=== PATIENT | female | born 1975 | race Caucasian/White ===

== ENCOUNTER 2017-08-16 10:46 | Inpatient (IN) | payer OTHER ==
[2017-08-16] MEDS ORDERED: CITRIC ACID/SODIUM CITRATE 30 ML UNIT-DOSE CUP PO ONE (11:28)
[2017-08-16] MEDS ORDERED: ELECTROLYTE-148 SOLN 1,000 ML IV SCH ×2 (11:30→13:54)
[2017-08-16] MEDS ORDERED: OXYTOCIN 20 UNITS in 0.9% NS 20 UNIT/1,000 ML INFUS.BAG IV ONE ×2 (11:32→14:34)
[2017-08-16] MEDS ORDERED: METOCLOPRAMIDE HCL INJECTION 10 MG/2 ML VIAL ONE (11:32)
[2017-08-16] MEDS ORDERED: ceFAZolin SODIUM 1 GM VIAL ONE (11:37)
[2017-08-16] MEDS ORDERED: morphine SULFATE/Preservative Free 0.5 MG/ML (1cc Syringe) ONE (11:37)
[2017-08-16] MEDS ORDERED: METOCLOPRAMIDE HCL INJECTION 10 MG/2 ML VIAL IVPUSH ONE (11:53)
[2017-08-16] MEDS ORDERED: PROPOFOL 20 ML ONE (11:55)
[2017-08-16 11:56] LABS: BASO % 0.5 % (0-2.0); EOS % 0.4 % (0-4.5); HEMATOCRIT 40.5 % (32.4-45.2); LYMPH % 15.3 % (8-40); MCH 33.8 pg (25.7-33.7); MCHC 34.6 g/dl (32.0-36.0); MEAN CELL VOLUME 97.6 fl (80-96); MONO % 7.5 % (3.8-10.2); NEUT % 76.3 % (42.8-82.8); PLATELET COUNT 221 K/MM3 (134-434); RBC 4.15 M/mm3 (3.60-5.2); RDW 13.9 % (11.6-15.6); WHITE BLOOD COUNT 7.2 K/mm3 (4.0-10.0)
[2017-08-16] MEDS ORDERED: SUCCINYLCHOLINE CHLORIDE 200 MG/10 ML VIAL ONE (11:56)
[2017-08-16 12:09] LABS: INR 0.96 (0.82-1.09); PROTHROMBIN TIME (PATIENT) 10.8 SEC (9.98-11.88)
[2017-08-16 12:12] LABS: ACTIVATED PTT 28.3 SECONDS (26.9-34.4)
[2017-08-16 12:20] LABS: ANION GAP 15 (8-16); BLOOD UREA NITROGEN 9 mg/dL (7-18); CALCIUM 9.1 mg/dL (8.5-10.1); CHLORIDE 106 mmol/L (98-107); CO2 19 mmol/L (21-32); CREATININE 0.6 mg/dL (0.55-1.02); GLUCOSE,RANDOM 112 mg/dL (74-106); POTASSIUM 4.2 mmol/L (3.5-5.1); SODIUM 140 mmol/L (136-145)
[2017-08-16] MEDS ORDERED: oxyCODONE HCL 5 MG TABLET PO PRN (12:51)
[2017-08-16] MEDS ORDERED: WITCH HAZEL 50% (TUCKS) 40 PAD/JAR PAD TP PRN (12:51)
[2017-08-16] MEDS ORDERED: diphenhydrAMINE HCL 25 MG CAPSULE (FP) PO PRN (12:51)
[2017-08-16] MEDS ORDERED: METHYLERGONOVINE MALEATE 0.2 MG/1 ML AMP IM PRN (12:51)
[2017-08-16] MEDS ORDERED: BENZOCAINE 20% 57 GM BOTTLE TP PRN (12:51)
[2017-08-16] MEDS ORDERED: BENZOCAINE 28 GM HEMORRHOIDAL OINTMENT PR PRN (12:51)
[2017-08-16] MEDS ORDERED: IBUPROFEN 800 MG/8 ML IJ IVPB PRN (12:51)
[2017-08-16] MEDS ORDERED: IBUPROFEN 600 MG TABLET (FP) PO PRN (12:58)
[2017-08-16] MEDS ORDERED: morphine SULFATE/Preservative Free 0.5 MG/ML (1cc Syringe) SPIN ONE (12:58)
[2017-08-16] MEDS ORDERED: ONDANSETRON 4 MG/2 ML VIAL IVPUSH PRN (12:58)
[2017-08-16] MEDS ORDERED: OXYTOCIN 20 UNITS in 0.9% NS 20 UNIT/1,000 ML INFUS.BAG IV SCH (13:00)
--- NOTE | 2017-08-16 13:04 | HP ---
Past Medical History - Primary Care Physician PCP:: Alfa Up (1125 am, ) - Admission Chief Complaint: 39.4 weeks, AMA, non reassuring FHR , for c/s History of Present Illness: 41 yo f g 3 p2002 edc by sono 08/19/17 , c/o baby not moving since 10 pm last night, no pain, no rom, no bleeding , no fever , vc closed long, vx -3 mi, fhr cat 2. spont. variable decel,rate to 90 bm, [facility] BTB variability good pateient was palced on Left side , o2 given, iv started , since there was no improvement in FHR tracing ,. advised c/s in view of recurrent variable decel. risks ,benfit discussed , agreed, case discussed with patient and her vanessad osteopathic physician History Source: Patient Limitations to Obtaining History: Language Barrier - Past Medical History Pulmonary: Yes: Other (quaniferon positve, asymptomatic) ...: 3 ...Para: 2 ...Term: 2 ...: 0 ...Spon : 0 ...Induced : 0 ...Multiple Gestation: 0 ...LMP: 11/20/16 ... Weeks Gestation by Dates: 39.4 ...EDC by Dates: 08/27/17 ...EDC by Sono: 08/19/17 Additional OB History: 2 term, , no complication,. AMA , first trimester screen and NT sono normal. abnormal 1 hr GCT , normal 3 hr gtt - Past Surgical History Hx Myomectomy: No Hx Transabdominal Cerclage: No - Smoking History Have you smoked in the past 12 months: No - Alcohol/Substance Use Hx Alcohol Use: No History of Substance Use: reports: None - Social History Usual Living Arrangement: Yes: With Spouse History of Recent Travel: No Home Medications - Allergies Allergies/Adverse Reactions: Allergies Allergy/AdvReac Type Severity Reaction Status Date / Time No Known Allergies Allergy Verified 08/16/17 11:12 - Home Medications Home Medications: Ambulatory Orders Vit/Iron Fum/Folic AC [ Tablet] 1 each PO DAILY 08/16/17 Review of Systems - Review of Systems Constitutional: reports: No Symptoms Eyes: reports: No Symptoms HENT: reports: No Symptoms Neck: reports: No Symptoms Cardiovascular: reports: No Symptoms Respiratory: reports: No Symptoms Gastrointestinal: reports: No Symptoms Genitourinary: reports: No Symptoms Breasts: reports: No Symptoms Reported Musculoskeletal: reports: No Symptoms Integumentary: reports: No Symptoms Endocrine: reports: No Symptoms Hematology/Lymphatic: reports: No Symptoms Psychiatric: reports: No Symptoms Physical Exam - Maternity Constitutional: Yes: Well Nourished, No Distress, Calm Eyes: Yes: WNL, Conjunctiva Clear, EOM Intact HENT: Yes: WNL, Atraumatic, Normocephalic Neck: Yes: WNL, Supple, Trachea Midline Cardiovascular: Yes: WNL, Regular Rate and Rhythm Breast(s): Yes: WNL - Abdominal Exam/OB Fundal Height: 40 Number of Fetuses: Single Presentation: Vertex Contractions: No Intensity: Unaware Monitor Mode: External Heart Rate Location: [facility] Category: II Accelerations: Non-Uniform Decelerations: Variable - Vaginal Exam/OB Vaginal Bleediing: No Speculum Exam: No Dilatation (cm): closed Effacement (%): 0 Amniotic Membrane Status: Intact Presentation: Vertex/Position Station: -3 - Physical Exam Musculoskeletal: Yes: WNL Edema: Yes Edema: LLE: Trace, RLE: Trace Deep Tendon Reflex Grade: Normal +2 ...Motor Strength: WNL Psychiatric: Yes: WNL - Labs Lab Results: CBC, BMP 08/16/17 11:45 08/16/17 11:45 Hemorrhage Risk Assessment - Risk Factors Medium Risk Factors: Yes: None High Risk Factors: Yes: None Risk Score: 1 Risk Level: Medium Risk Problem List - Problems (1) with 39 completed weeks gestation Code(s): Z3A.39 - 39 WEEKS GESTATION OF (2) Non-reassuring electronic monitoring tracing Code(s): O76 - ABNLT IN HEART RATE AND RHYTHM COMP LABOR AND DELIVERY (3) Advanced maternal age (AMA), 40 years or greater Code(s): EDK1529 - Assessment/Plan plan admit, heat r monitoring , for c/s
--- NOTE | 2017-08-16 13:27 | OP ---
Operative Note - Note: Operative Date: 08/16/17 Pre-Operative Diagnosis: non reassuring heart rate Operation: primary LST c/s Findings: live baby boy 6/7 , clear amniotic fluid, poly hydramnion . approx . 1500 cc . clear , ROT position. no cord around the neck. Post-Operative Diagnosis: Same as Pre-op Surgeon: Alfa Up Non Profit Financial Controller: Toney Adame Anesthesiologist/ALTERNATIVE DISPUTE RESOLUTION MEDIATOR: Seng De La Cruz Anesthesia: Spinal Specimens Removed: placenta Estimated Blood Loss (mls): 500 Drains, Volume Out (mls): 400 Blood Volume Replaced (mls): 0 Fluid Volume Replaced (mls): 1,500 Operative Report Dictated: Yes
[2017-08-16 13:34] VITALS: BMI 23.8
[2017-08-16 13:34] LABS: ARTERIAL BLOOD GAS BASE EXCESS -12.5 meq/l (-2-2); ARTERIAL BLOOD GAS PCO2 54.6 mmHg (35-45); ARTERIAL BLOOD GAS PO2 19.1 mmHg (80-100)
[2017-08-16 13:45] LABS: ARTERIAL BLOOD GAS pH 7.08 (7.35-7.45)
[2017-08-16 13:48] LABS: VENOUS PC02 44.8 mmHg (38-52); VENOUS PO2 26.6 mmHg (28-48)
[2017-08-16 14:38] LABS: VENOUS PH 7.19 (7.32-7.42)
[2017-08-16] MEDS: CEFAZOLIN 1 GM/D5W 1 GM/50 ML BAG IVPB SCH (17:26)
--- NOTE | 2017-08-16 19:11 | OP ---
DATE OF OPERATION: 08/16/2017 PREOPERATIVE DIAGNOSES: , 39.4 weeks gestation, advanced maternal age, non-reassuring heart rate. POSTOPERATIVE DIAGNOSES: , 39.4 weeks gestation, advanced maternal age, non-reassuring heart rate. PROCEDURE: Primary low-segment transverse section. SURGEON: Zaid Up MD LOGISTICS VICE PRESIDENT: BERYL Palacio ANESTHESIA: Spinal. ANESTHESIOLOGIST: Seng De La Cruz MD ESTIMATED BLOOD LOSS: 500 mL. FINDINGS: A live baby boy, Apgars 6 and 7; clear amniotic fluid with evidence of polyhydramnios. OPERATION: Patient was taken to operating room, adequate spinal anesthesia. Abdomen and perineum was prepped and draped. Pfannenstiel abdominal skin incision was made, abdominal wall was cut layer by layer until peritoneum was exposed and incised. Upon entering abdominal cavity, bowels were packed away and the lower uterine segment was identified and uterovesical fold of peritoneum established, bladder was pushed down. Then a low transverse uterine incision was made with a knife, amniotic sac was entered, clear fluid. Incision was extended laterally with bandage scissors and head was delivered, nasopharynx was suctioned. Live baby boy was delivered without any difficulty, attended by multi mission helicopter aircrewman. Placenta was delivered manually. Uterine cavity was cleaned of all remaining tissue. Uterine incision was closed in 2 layers, 1st layer with 0 Biosyn continuous suture, the 2nd layer with 0 Biosyn imbricating the 1st layer. Bladder flap was closed with 0 Biosyn continuous suture. Both ovaries and tubes were checked, were normal, no active bleeding was seen. All the lap pad, sponge count, and instrument count were correct. Then pelvic cavity several times irrigated and then peritoneum was closed with 0 Biosyn continuous suture. Muscles were brought together with interrupted suture of 0 Biosyn. Fascia was closed with 0 Biosyn continuous suture, subcutaneous fat with interrupted suture of 0 Biosyn, and the skin was closed with pilar. Patient tolerated procedure well, left the OR in good condition. ZAID UP M.D. /[id number]
[2017-08-17] MEDS: CEFAZOLIN 1 GM/D5W 1 GM/50 ML BAG IVPB SCH (02:14)
--- NOTE | 2017-08-17 07:23 | PN ---
Progress Note (short form) - Note Progress Note: pod 1, s/p c/s. no c/o her baby was transferred to [facility] for anemia CBC, BMP 08/16/17 11:45 08/16/17 11:45 Last Vital Signs Temp Pulse Resp BP Pulse Ox 98.5 F 79 18 105/50 100 08/17/17 06:00 08/17/17 06:00 08/17/17 06:00 08/17/17 06:00 08/16/17 14:10 abdomen soft, no distension, no cva incision dry, clean no calf tenderness lochia mild pod 1 afebrile plan ambulate, advance diet cbc Problem List - Problems (1) with 39 completed weeks gestation Code(s): Z3A.39 - 39 WEEKS GESTATION OF (2) Non-reassuring electronic monitoring tracing Code(s): O76 - ABNLT IN HEART RATE AND RHYTHM COMP LABOR AND DELIVERY (3) Advanced maternal age (AMA), 40 years or greater Code(s): TCV5005 -
[2017-08-17 08:14] LABS: BASO % 0.3 % (0-2.0); EOS % 0.8 % (0-4.5); HEMATOCRIT 35.6 % (32.4-45.2); HEMOGLOBIN 12.3 GM/dL (10.7-15.3); LYMPH % 10.9 % (8-40); MCH 34.1 pg (25.7-33.7); MCHC 34.5 g/dl (32.0-36.0); MEAN CELL VOLUME 99.1 fl (80-96); MEAN PLT VOLUME 9.2 fl (7.5-11.1); MONO % 6.5 % (3.8-10.2); NEUT % 81.5 % (42.8-82.8); PLATELET COUNT 183 K/MM3 (134-434); RDW 13.8 % (11.6-15.6); WHITE BLOOD COUNT 11.1 K/mm3 (4.0-10.0)
[2017-08-17] MEDS: ACETAMINOPHEN 325 MG TABLET (FP) PO PRN ×2 (08:25→17:34)
[2017-08-17] MEDS: SIMETHICONE 80 MG TAB.CHEW (FP) PO PRN ×2 (08:25→17:33)
[2017-08-17] MEDS: oxyCODONE HCL 5 MG TABLET PO PRN ×2 (08:25→17:34)
--- NOTE | 2017-08-17 08:58 | PN ---
Progress Note (short form) - Note Progress Note: Anesthesia POD#1 S/P Primary under Spinal and Duramorph VSS,no N/V,mild itch,full strength in lower extremities. Pain is mild. A/P No complications of anesthesia seen. Margarita Quiroz MD.
[2017-08-17] MEDS: ENOXAPARIN NA (PORCINE) 40 MG/0.4 ML DISP.SYRIN SQ SCH (09:53)
[2017-08-17] MEDS ORDERED: BISACODYL 10 MG SUPP.RECT PR PRN (12:51)
[2017-08-17] MEDS: DEXTROSE 5%-LACTATED RINGERS 1,000 ML IV SCH (18:17)
[2017-08-17] MEDS: OXYTOCIN 20 UNITS in 0.9% NS 20 UNIT/1,000 ML INFUS.BAG IV SCH (18:17)
[2017-08-18] MEDS: SIMETHICONE 80 MG TAB.CHEW (FP) PO PRN ×3 (03:16→19:51)
[2017-08-18] MEDS: ACETAMINOPHEN 325 MG TABLET (FP) PO PRN ×3 (03:16→19:52)
[2017-08-18] MEDS: oxyCODONE HCL 5 MG TABLET PO PRN ×3 (03:17→19:51)
--- NOTE | 2017-08-18 07:45 | PN ---
Post Progress Note Post Day: 2 Type of Delivery: Primary C/S Vital Signs: Vital Signs Temperature 98.5 F 08/17/17 22:00 Pulse Rate 102 H 08/17/17 22:00 Respiratory Rate 18 08/17/17 22:00 Blood Pressure 124/61 08/17/17 22:00 O2 Sat by Pulse Oximetry (%) 100 08/16/17 14:10 Breast Exam: Yes: Soft Uterus: Yes: Fundus Firm Incision: Yes: Dressing dry and intact Abdomen/GI: Yes: Abdomen soft Lochia: Yes: Rubra Lochia, amount: Small Extremities: Yes: Calves non-tender Perineum: Yes: Intact Activity: Ambulating - Labs Labs: CBC WBC 11.1 K/mm3 (4.0-10.0) H D 08/17/17 07:10 RBC 3.60 M/mm3 (3.60-5.2) 08/17/17 07:10 Hgb 12.3 GM/dL (10.7-15.3) D 08/17/17 07:10 Hct 35.6 % (32.4-45.2) 08/17/17 07:10 MCV 99.1 fl (80-96) H 08/17/17 07:10 MCH 34.1 pg (25.7-33.7) H 08/17/17 07:10 MCHC 34.5 g/dl (32.0-36.0) 08/17/17 07:10 RDW 13.8 % (11.6-15.6) 08/17/17 07:10 Plt Count 183 K/MM3 (134-434) 08/17/17 07:10 MPV 9.2 fl (7.5-11.1) 08/17/17 07:10 Neutrophils % 81.5 % (42.8-82.8) 08/17/17 07:10 Lymphocytes % 10.9 % (8-40) D 08/17/17 07:10 Monocytes % 6.5 % (3.8-10.2) 08/17/17 07:10 Eosinophils % 0.8 % (0-4.5) D 08/17/17 07:10 Basophils % 0.3 % (0-2.0) 08/17/17 07:10 Assessment/Plan oob reg diet pain control
[2017-08-18] MEDS: ENOXAPARIN NA (PORCINE) 40 MG/0.4 ML DISP.SYRIN SQ SCH (09:30)
[2017-08-18] MEDS ORDERED: DIPHTH,PERTUSS(ACELL),TET 0.5 ML DISP.SYRIN IM ONE (10:00)
[2017-08-18] MEDS ORDERED: SENNOSIDES/DOCUSATE COMBO (SENNA PLUS) TABLET (UD) PO PRN (22:00)
[2017-08-19] MEDS: IBUPROFEN 600 MG TABLET (FP) PO PRN ×4 (05:57→22:48)
[2017-08-19] MEDS: ACETAMINOPHEN 325 MG TABLET (FP) PO PRN ×4 (05:57→22:47)
[2017-08-19] MEDS: SIMETHICONE 80 MG TAB.CHEW (FP) PO PRN ×4 (05:57→22:47)
[2017-08-19 08:56] LABS: BASO % 0.3 % (0-2.0); EOS % 1.9 % (0-4.5); HEMATOCRIT 34.1 % (32.4-45.2); HEMOGLOBIN 11.8 GM/dL (10.7-15.3); LYMPH % 10.6 % (8-40); MCHC 34.6 g/dl (32.0-36.0); MEAN CELL VOLUME 98.4 fl (80-96); MEAN PLT VOLUME 8.7 fl (7.5-11.1); MONO % 5.6 % (3.8-10.2); NEUT % 81.6 % (42.8-82.8); PLATELET COUNT 255 K/MM3 (134-434); RBC 3.47 M/mm3 (3.60-5.2); RDW 14.2 % (11.6-15.6); WHITE BLOOD COUNT 11.1 K/mm3 (4.0-10.0)
[2017-08-19] MEDS: ENOXAPARIN NA (PORCINE) 40 MG/0.4 ML DISP.SYRIN SQ SCH (10:41)
--- NOTE | 2017-08-19 11:36 | PN ---
Post Progress Note - Subjective Subjective: pt c/o pain scale 6-7/10 Post Day: 3 Type of Delivery: Primary C/S Vital Signs: Vital Signs Temperature 98.6 F 08/19/17 06:00 Pulse Rate 82 08/19/17 06:00 Respiratory Rate 18 08/19/17 06:00 Blood Pressure 106/58 08/19/17 06:00 O2 Sat by Pulse Oximetry (%) 100 08/16/17 14:10 Breast Exam: Yes: Soft, Other (pumpiing the breast milk ). No: Engorged Uterus: Yes: Fundus Firm, Fundus below umbilicus, Non-tender Incision: Yes: Marcie intact. No: Redness, Oozing Abdomen/GI: Yes: Abdomen soft, Tender, Passing flatus (bm done ), Tolerating PO (diet ). No: Abdominal Distention Lochia: Yes: Rubra Lochia, amount: Moderate Extremities: Yes: Calves non-tender Perineum: Yes: Intact Activity: Ambulating - Labs Labs: CBC WBC 11.1 K/mm3 (4.0-10.0) H 08/19/17 08:00 RBC 3.47 M/mm3 (3.60-5.2) L 08/19/17 08:00 Hgb 11.8 GM/dL (10.7-15.3) 08/19/17 08:00 Hct 34.1 % (32.4-45.2) 08/19/17 08:00 MCV 98.4 fl (80-96) H 08/19/17 08:00 MCH 34.0 pg (25.7-33.7) H 08/19/17 08:00 MCHC 34.6 g/dl (32.0-36.0) 08/19/17 08:00 RDW 14.2 % (11.6-15.6) 08/19/17 08:00 Plt Count 255 K/MM3 (134-434) D 08/19/17 08:00 MPV 8.7 fl (7.5-11.1) 08/19/17 08:00 Neutrophils % 81.6 % (42.8-82.8) 08/19/17 08:00 Lymphocytes % 10.6 % (8-40) 08/19/17 08:00 Monocytes % 5.6 % (3.8-10.2) 08/19/17 08:00 Eosinophils % 1.9 % (0-4.5) D 08/19/17 08:00 Basophils % 0.3 % (0-2.0) 08/19/17 08:00 Other Findings, Remarks: pt appears sad Assessment/Plan Pod #3 stable. Pt's baby is in NICU at [facility] discharge tomorrow.
--- NOTE | 2017-08-19 13:34 | PATH ---
Surgical Pathology Report Patient Name: TRAN CANO [facility]. Rec. #: [id number] /Age/Gender: 1975 (Age: 41) / F Account: [id number] Location: [facility] OBS/SILICA FILTER OPERATOR Taken: 08/16/2017 Received: 08/17/2017 Reported: 08/19/2017 Physicians: Alfa Up M.D. Specimen(s) Received PLACENTA Clinical History , 39.4 weeks, x2, advanced maternal age Final Diagnosis PLACENTA, SECTION: 583 g THIRD TRIMESTER PLACENTA WITH TRIVASCULAR UMBILICAL CORD AND MODERATE ACUTE CHORIOAMNIONITIS. Electronically Signed Tran Mendoza M.D. Gross Description The specimen is received fresh labeled placenta and is a 583 gram, 16.5 x 16.0 x 2.7 cm. placenta with attached membranes and umbilical cord. The attached membranes are duong, thick, cloudy and insert marginally. The umbilical cord measures 13 cm. in length and averages 1.3 cm. in diameter. The cord inserts eccentrically, 2.5 cm. to the nearest margin. No true knots or strictures are identified. Cut surface of the umbilical cord reveals 3 vessels. The surface is lackey blue with moderate fibrin deposition and appropriate caliber vessels. The maternal surface is red-brown with focal defects. Sectioning reveals red-brown, spongy parenchyma. No lesions are identified. Precision Assembler Bench sections are submitted in three cassettes as follows: 1- membrane rolls and umbilical cord; 2-3- full thickness sections of placenta. 08/18/[address] [facility]08/18/2017
[2017-08-19] MEDS: OXYTOCIN 20 UNITS in 0.9% NS 20 UNIT/1,000 ML INFUS.BAG IV SCH (16:57)
[2017-08-19] MEDS: DEXTROSE 5%-LACTATED RINGERS 1,000 ML IV SCH (16:57)
[2017-08-20] MEDS: IBUPROFEN 600 MG TABLET (FP) PO PRN ×3 (04:04→13:29)
[2017-08-20] MEDS: ACETAMINOPHEN 325 MG TABLET (FP) PO PRN ×3 (04:04→13:30)
[2017-08-20] MEDS: SIMETHICONE 80 MG TAB.CHEW (FP) PO PRN ×3 (04:04→13:29)
--- NOTE | 2017-08-20 09:42 | DS ---
Physical Exam-PIPE PRODUCTION WORKER Vital Signs: Vital Signs Temperature 98.1 F 08/19/17 22:00 Pulse Rate 74 08/19/17 22:00 Respiratory Rate 18 08/19/17 22:00 Blood Pressure 103/56 08/19/17 22:00 O2 Sat by Pulse Oximetry (%) 100 08/16/17 14:10 Constitutional: Yes: Well Nourished Eyes: Yes: Conjunctiva Clear HENT: Yes: Atraumatic Neck: Yes: Supple Cardiovascular: Yes: Regular Rate and Rhythm Respiratory: Yes: Regular Gastrointestinal: Yes: Normal Bowel Sounds External Genitalia: Yes: Normal Cervix: Yes: Normal Uterus: Yes: Firm Integumentary: Yes: WNL Wound/Incision: Yes: Well Approximated, [place]ill Intact Neurological: Yes: Alert, Oriented ...Motor Strength: WNL Psychiatric: Yes: Alert, Oriented Labs: CBC, BMP 08/19/17 08:00 08/16/17 11:45 Delivery - Delivery Type of Anesthesia: Spinal EBL (cc): 500 Delivery, Single - Stages of Labor Date of Delivery: 08/16/17 Time of Delivery: 12:16 Time Placenta Delivered: 12:17 - Condition of Painting Contractor/Biometrics Consultant Present: Yes Name: Beatrice Newman Gender: Male Weight: 8 lb 10 oz Position: Right, OT Total Hours ROM (Hrs/Mins): 0/3 minutes - 1 Minute Total Score: 6 5 Minutes Total Score: 7 - Feeding Plan Initial Plan: Elected not to breastfeed exclusively throughout hospitalization Discharge Summary Reason For Visit: C\SECTION Current Active Problems Advanced maternal age (AMA), 40 years or greater (Acute) Non-reassuring electronic monitoring tracing (Acute) with 39 completed weeks gestation (Acute) Status post repeat low transverse section (Acute) Procedures: Principal: Repeat Low Transverse Hospital Course: Routine Post op care Condition: Good - Instructions Diet, Activity, Other Instructions: Regular diet No driving, no lifting x 4 weeks F/U in clinic in 4 weeks Disposition: HOME - Home Medications Comprehensive Discharge Medication List: Ambulatory Orders Vit/Iron Fum/Folic AC [ Tablet] 1 each PO DAILY 08/16/17
[2017-08-20 10:09] VITALS: BP 121/70; PULSE 64; TEMP 97.7
[2017-08-20] MEDS: ENOXAPARIN NA (PORCINE) 40 MG/0.4 ML DISP.SYRIN SQ SCH (10:42)
[2017-08-20] MEDS: OXYTOCIN 20 UNITS in 0.9% NS 20 UNIT/1,000 ML INFUS.BAG IV SCH (13:00)
[2017-08-20] MEDS: DEXTROSE 5%-LACTATED RINGERS 1,000 ML IV SCH (13:00)
== END 2017-08-20 14:30 | disposition home or self-care (01) | DRG 540 ==
LOC: JDEL 10:46 → JLDR 11:20 → J3W 15:09
PROVIDERS: ADMIT Obstetrics & Gynecology; ATTEND Obstetrics & Gynecology
PROC: 10D00Z1 Extraction of Products of Conception, Low, Open Approach (ICD-10-PCS; principal; 2017-08-16)
DX: O76 Abnormality in fetal heart rate and rhythm complicating labor and delivery (principal); Z3A.39 39 weeks gestation of pregnancy; Z37.0 Single live birth
CPT/HCPCS: 36415; 36600; 71046-TC-FY; 80048; 82803; 85025; 85610; 85730; 86593; 86850; 86900; 86901; 88307-TC; 90715

== ENCOUNTER 2017-10-06 16:20 | Emergency (ER) | payer OTHER ==
--- NOTE | 2017-10-06 16:31 | PDOC ---
Rapid Medical Evaluation Time Seen by Provider: 10/06/17 16:26 Medical Evaluation: Allergies Allergy/AdvReac Type Severity Reaction Status Date / Time No Known Allergies Allergy Verified 10/06/17 16:26 10/06/17 16:27 I have performed a brief in-person evaluation of this patient. The patient presents with a chief complaint of: n/v/d w/ lower abd pain, dizziness and TAYLOR this am, no sick contacts, recent travel. Denies any pmhx Pertinent physical exam findings:Tachy to 125 and alert in NAD I have ordered the following:labs The patient will proceed to the ED for further evaluation. Discharge Disposition - Diagnosis Diarrhea Qualifiers: Diarrhea type: unspecified type Qualified Code(s): R19.7 - Diarrhea, unspecified - Referrals - Patient Instructions - Post Discharge Activity
[2017-10-06 16:32] VITALS: BMI 25.6
--- NOTE | 2017-10-06 16:47 | PDOC ---
History of Present Illness - General Chief Complaint: Vomiting/Diarrhea Stated Complaint: ABD PAIN Time Seen by Provider: 10/06/17 16:26 - History of Present Illness Initial Comments: 10/06/17 17:02 The patient is a 41 year old female with no significant PMH who presents for evaluation of headache, nausea, vomiting, diarrhea, and abdominal pain. The patient reports onset of a throbbing headache with associated nausea, non-bloody , non-bilious vomiting, poorly described lower abdominal pain, and non-bloody diarrhea earlier today. She reports minimal improvement in her symptoms prompting her presentation to the ED for evaluation. The patient endorses some generalized body aches and dysuria as well. The patient reports some subjective fevers, but otherwise denies chills, SOB, or changes with urination. Past History - Past Medical History Allergies/Adverse Reactions: Allergies Allergy/AdvReac Type Severity Reaction Status Date / Time No Known Allergies Allergy Verified 10/06/17 16:26 Home Medications: Ambulatory Orders Vit/Iron Fum/Folic AC [ Tablet] 1 each PO DAILY 08/16/17 Ondansetron [Zofran Odt -] 4 mg SL TID PRN #21 od.tablet 10/06/17 Asthma: No Cancer: No Cardiac Disorders: No COPD: No Diabetes: No HTN: No Seizures: No Thyroid Disease: No Other medical history: DENIES. - Suicide/Smoking/Psychosocial Hx Smoking History: Never smoked Have you smoked in the past 12 months: No Hx Alcohol Use: No Drug/Substance Use Hx: No Hx Substance Use Treatment: No Review of Systems - Review of Systems Comments:: 10/06/17 17:05 Constitutional: Fevers, Generalized Body Aches. No chills, fatigue, HEENT: No Rhinorrhea, nasal congestion, visual changes Cardiovascular: No chest pain, syncope, palpitations, lightheadedness Respiratory: No Cough, SOB, Hemoptysis, Gastrointestinal: Lower abdominal pain, nausea, vomiting, diarrhea. No Constipation, Melena Genitourinary: Dysuria. No Frequency, Urgency, Hesitancy, Hematuria, Flank pain Musculoskeletal: No Myalgia, arthralgia Skin: No rashes, itching, bruising, pallor Neurologic: No Headache, Dizziness, Numbness, Weakness, or Tingling Psychiatric: No Hallucinations. No SI or HI *Physical Exam - Vital Signs Last Vital Signs Temp Pulse Resp BP Pulse Ox 99.2 F 125 H 17 114/65 99 10/06/17 16:27 10/06/17 16:27 10/06/17 16:27 10/06/17 16:27 10/06/17 16:27 - Physical Exam Comments: 10/06/17 17:08 General Appearance: Nourished. No Apparent Distress HEENT: EOMI, KATARZYNA. No Pharyngeal Erythema, Tonsillar Exudate, Tonsillar Erythema Neck: No Cervical Lymphadenopathy Respiratory/Chest: Lungs Clear, Normal Breath Sounds. No Crackles, Rales, Rhonchi, Wheezing Cardiovascular: Regular Rhythm, Regular Rate. No Murmur, Gallops, Rubs Gastrointestinal/Abdominal: Normal Bowel Sounds, Soft. Mild tenderness to palpation in the epigastric region and suprapubic region on exam. No Guarding, Rebound, Musculoskeletal: No CVA Tenderness Extremity: Normal Capillary Refill Integumentary: Normal Color, Dry, Warm Neurologic: tool pusher II-XII NML intact, Fully Oriented, Alert, Normal Mood/Affect, Normal Response, Motor Strength 5/5. ED Treatment Course - LABORATORY CBC & Chemistry Diagram: 10/06/17 16:56 10/06/17 16:56 Medical Decision Making - Medical Decision Making 10/06/17 17:09 The patient is a 41 year old female with no significant PMH who presents for evaluation of headache, nausea, vomiting, diarrhea, and abdominal pain. Differential includes but is not limited to: Viral Gastroenteritis, UTI, Pancreatitis, Infectious, Metabolic Derangement. Given the patient's history it is possible the patient's symptoms are due to a gastroenteritis. We will obtain a cbc, cmp, lipase, ua, urine preg to evaluate for possible etiologies. We will treat in the meantime with iv fluids, reglan, pepcid, iv tylenol, mylanta. We will continue to monitor and reassess while in the ED. 10/06/17 18:37 CBC demonstrates an elevated wbc. CMP, Lipase, ua were unremarkable. The patient reports significant improvement in her symptoms after medications. The patient's symptoms are likely due to a viral gastroenteritis. We are comfortable discharging the patient home at this time with primary care provider follow up. We discussed the results, plan and strict return precautions with the patient who voiced understanding and is agreeable with the plan. *DC/Admit/Observation/Transfer Diagnosis at time of Disposition: Gastroenteritis Diarrhea Qualifiers: Diarrhea type: unspecified type Qualified Code(s): R19.7 - Diarrhea, unspecified - Discharge Dispostion Disposition: HOME Condition at time of disposition: Good Admit: No - Prescriptions Prescriptions: Ondansetron [Zofran Odt -] 4 mg SL TID PRN #21 od.tablet PRN Reason: Nausea - Referrals Referrals: Manuel Benjamin MD [Staff Physician] - - Patient Instructions Printed Discharge Instructions: DI for Viral Gastroenteritis -- Adult Additional Instructions: Please return to the ER if you experience concerning or worsening symptoms including worsening abdominal pain, fevers, vomiting, or if you feel ill. Your lab results were normal here in the ER. Your symptoms are likely due to a viral illness. We have sent a prescription for anti-nausea medication to your pharmacy. You may use ibuprofen or tylenol as needed to help manage any pain or body aches. It is important that you call to schedule a follow up appointment with your primary care provider within 2-3 days to discuss your ER visit and further management of your symptoms. Por favor, regrese a la juana de emergencias si experimenta problemas o empeoramiento de los sntomas, incluyendo el empeoramiento del dolor abdominal, fiebres, vmitos o si se siente enfermo. Los resultados de tu laboratorio fueron normales aqu en urgencias. Marii s ntomas probablemente se deban a gayla enfermedad viral. Hemos enviado gayla prescripcin de medicamentos contra las nuseas a rivera farmacia. Usted puede usar ibuprofeno o Tylenol segn sea necesario para ayudar a manejar cualquier dolor o evi corporales. Es importante que usted llame para programar gayla tatiana de seguimiento con rivera proveedor de atencin primaria dentro de 2-3 sarah para discutir rivera visita de urgencias y la administracin adicional de marii s ntomas. Print Language: MOHAWK - Post Discharge Activity
[2017-10-06] MEDS ORDERED: SODIUM CHLORIDE 1,000 ML IV STA (16:51)
[2017-10-06] MEDS ORDERED: MAG HYDROX/AL HYDROX/SIMETH 30 ML UNIT-DOSE CUP PO ONE (16:51)
[2017-10-06] MEDS ORDERED: METOCLOPRAMIDE HCL INJECTION 10 MG/2 ML VIAL IVPUSH ONE (16:51)
[2017-10-06] MEDS ORDERED: ACETAMINOPHEN 1000 MG/100 ML VIAL (NON FORMULARY) IVPB ONE (16:52)
[2017-10-06] MEDS ORDERED: FAMOTIDINE 20 MG/50 ML IVPB 20 MG/50 ML MG IVPB ONE ×2 (17:00→17:08)
--- NOTE | 2017-10-06 17:07 | PDOC ---
Attending Attestation - Resident Resident Name: Trevor Faye - ED Attending Attestation I have performed the following: I have examined & evaluated the patient, The case was reviewed & discussed with the resident, I agree w/resident's findings & plan, Exceptions are as noted - HPI HPI: 10/06/17 17:06 41 YO female p/w nausea,vomiting and diarrhea and headache for 1 day. No sick contacts. Gave 08/20/17 - Physicial Exam PE: 10/06/17 18:34 wnwd 41 yo female p/w NVD head ncat neck supple lungs cta b/l cvs [id number] abd no rebound, no guarding ext no e/c/c neuro axo3,ambulatory psych appropriate - Medical Decision Making 10/06/17 18:33 pt's symptoms improved and she was comfortable going home
[2017-10-06] MEDS ORDERED: METOCLOPRAMIDE HCL INJECTION 10 MG/2 ML VIAL ONE (17:08)
[2017-10-06] MEDS ORDERED: ACETAMINOPHEN INJECTION 100 ML IVPB ONE (17:08)
[2017-10-06] MEDS ORDERED: MAG HYDROX/AL HYDROX/SIMETH 30 ML UNIT-DOSE CUP ONE (17:08)
[2017-10-06 17:17] LABS: URINE APPEARANCE SLCLOUDY; URINE BILIRUBIN NEGATIVE (<2.0 mg/dL); URINE BLOOD 3+ (NEGATIVE); URINE COLOR YELLOW; URINE GLUCOSE (UA) NEGATIVE (NEGATIVE); URINE KETONE NEGATIVE (NEGATIVE); URINE LEUK ESTERASE NEGATIVE (NEGATIVE); URINE NITRITE NEGATIVE (NEGATIVE); URINE PROTEIN 1+ (NEGATIVE); URINE UROBILINOGEN NEGATIVE mg/dL (0.2-1.0)
[2017-10-06 17:20] LABS: EPI CELLS RARE /HPF (FEW); URINE MUCUS RARE
[2017-10-06 17:27] LABS: BASO % 0.2 % (0-2.0); EOS % 0.4 % (0-4.5); HEMATOCRIT 39.8 % (32.4-45.2); LYMPH % 2.9 % (8-40); MCH 33.2 pg (25.7-33.7); MCHC 35.2 g/dl (32.0-36.0); MEAN CELL VOLUME 94.5 fl (80-96); MEAN PLT VOLUME 8.6 fl (7.5-11.1); MONO % 3.8 % (3.8-10.2); NEUT % 92.7 % (42.8-82.8); PLATELET COUNT 282 K/MM3 (134-434); RBC 4.21 M/mm3 (3.60-5.2); RDW 12.8 % (11.6-15.6); WHITE BLOOD COUNT 13.5 K/mm3 (4.0-10.0)
[2017-10-06 17:50] LABS: ALBUMIN 4.3 g/dl (3.4-5.0); ALK PHOS 129 U/L (45-117); ANION GAP 7 (8-16); BILIRUBIN,TOTAL 0.6 mg/dL (0.2-1.0); BLOOD UREA NITROGEN 18 mg/dL (7-18); CALCIUM 8.6 mg/dL (8.5-10.1); CHLORIDE 108 mmol/L (98-107); CO2 25 mmol/L (21-32); CREATININE 0.7 mg/dL (0.55-1.02); GLUCOSE,RANDOM 128 mg/dL (74-106); SGOT/AST 65 U/L (15-37); SGPT/ALT 119 U/L (12-78); SODIUM 140 mmol/L (136-145); TOT PROT 8.1 g/dl (6.4-8.2)
[2017-10-06 18:36] VITALS: BP 108/74; PULSE 94; TEMP 98.2
== END 2017-10-06 18:38 | disposition home or self-care (01) ==
LOC: SUPCPDRO 16:20 → JER 16:20
PROC: 3E0337Z Introduction of Electrolytic and Water Balance Substance into Peripheral Vein, Percutaneous Approach (ICD-10-PCS; principal; 2017-10-06)
PROC: 3E033GC Introduction of Other Therapeutic Substance into Peripheral Vein, Percutaneous Approach (ICD-10-PCS; 2017-10-06)
PROC: 3E033NZ Introduction of Analgesics, Hypnotics, Sedatives into Peripheral Vein, Percutaneous Approach (ICD-10-PCS; 2017-10-06)
DX: R19.7 Diarrhea, unspecified (principal)
CPT/HCPCS: 36415; 80053; 81003; 81015; 83690; 84703; 85025; 87086; 96361; 96365; 96375; 99284-25; J0131; J7030